=== PATIENT | male | born 1955 | race Caucasian/White ===

== ENCOUNTER 2016-08-24 17:40 | Emergency (ER) | payer BC ==
[2016-08-24] MEDS ORDERED: Sodium Chloride 0.9% 10 ML Syringe FLUSH PRN (18:28)
[2016-08-24] MEDS ORDERED: Aspirin 81 MG Tab.Chew PO ONE (18:28)
[2016-08-24] MEDS ORDERED: Nitroglycerin 0.4 MG Tab.SL SL PRN (18:34)
[2016-08-24 19:09] LABS: CHLORIDE,CL 105 mmol/L (101-111); SODIUM,NA 137 mmol/L (135-145)
--- NOTE | 2016-08-24 19:20 | EDM.PDOC ---
ED HPI GENERAL MEDICAL PROBLEM - General Chief Complaint: Neck Problem Stated Complaint: SHOULDER/NECK, [id number] Time Seen by Provider: 08/24/16 19:05 Source of Information: Reports: Patient, Family (SO) History Limitations: Reports: No Limitations - History of Present Illness INITIAL COMMENTS - FREE TEXT/NARRATIVE: Presents with C/O intermittent left sided neck pain over past week, sharp, stabbing brief episodes, not associated with positioning or activity. No relief with ibuprofen, Tonight episode severe enough to make him tear and radiated more to left upper chest below clavicle. Denies SOB fatigue, or sweating with episodes. Hx aortic aneurysm, noted to have measured 3.4cm last year and 4.2 this past month. Prior IN 2009 with one stent. Smoker 1/2 to 1 ppd. Duration: Intermittent Location: Reports: Neck Quality: Reports: Sharp, Stabbing Severity: Moderate Associated Symptoms: Reports: No Other Symptoms Left Lower Neck Pain Score (Numeric/FACES): 5 - Related Data Allergies Allergy/AdvReac Type Severity Reaction Status Date / Time carvedilol [From Coreg] Allergy Unknown DIZZY,LIGHT Verified 01/06/15 06:55 HEADED Home Meds: Home Meds Aspirin [Halfprin] 81 mg PO DAILY 01/05/15 [History] Isosorbide Mononitrate [Imdur] 60 mg PO DAILY 01/05/15 [History] Metoprolol Succinate [Toprol XL 100mg] 100 mg PO DAILY 01/05/15 [History] Multivitamin with Minerals [Multivitamins with Minerals] 1 tab PO DAILY [History] Psyllium Husk/Aspartame [Metamucil Sugar Free] 1 pack PO DAILY 01/05/15 [History ] atorvaSTATin [Lipitor] 80 mg PO DAILY 01/05/15 [History] Lisinopril 5 mg PO DAILY 08/24/16 [History] Past Medical History HEENT History: Reports: Impaired Vision Cardiovascular History: Reports: High Cholesterol, Hypertension Other Cardiovascular History: abdominal aortic aneurysm Other Gastrointestinal History: right inguinal hernia Other Genitourinary History: SAW A SKEIN WINDER ABOUT TWO WEEKS AGO AND HAD A ULTRASOUND DONE OF KIDNEYS, NO RESULTS BACK YET. Other Neuro History: BULGING DISK Other Endocrine/Metabolic History: Pre-diabetes Other Dermatologic History: dry skin and numerous moles noted. Social & Family History - Tobacco Use Smoking Status *Q: Current Every Day Smoker Years of Tobacco use: 40 Packs/Tins Daily: 0.5 Used Tobacco, but Quit: No Second Hand Smoke Exposure: Yes - Alcohol Use Days Per Week of Alcohol Use: 7 Number of Drinks Per Day: 2 Total Drinks Per Week: 14 - Recreational Drug Use Recreational Drug Use: No Drug Use in Last 12 Months: No ED ROS GENERAL - Review of Systems Review Of Systems: See Below HEENT: Reports: Glasses Respiratory: Denies: Shortness of Breath, Cough Cardiovascular: Reports: Chest Pain (left upper below clavicle [employer]). Denies: Dyspnea on Exertion, Edema, Lightheadedness, Palpitations GI/Abdominal: Reports: No Symptoms Musculoskeletal: Reports: Neck Pain Skin: Reports: No Symptoms Neurological: Reports: No Symptoms ED EXAM, GENERAL - Physical Exam Exam: See Below Exam Limited By: No Limitations General Appearance: Alert, No Apparent Distress (Relief of pain following administration of Aspirin) Eye Exam: Bilateral Eye: EOMI, PERRL Ears: Normal External Exam, Normal TMs Nose: Normal Inspection Throat/Mouth: Normal Inspection Head: Atraumatic, Normocephalic Neck: Normal Inspection, Non-Tender, Full Range of Motion Respiratory/Chest: No Respiratory Distress, Lungs Clear, Normal Breath Sounds Cardiovascular: Normal Peripheral Pulses, Regular Rate, Rhythm, No Edema, No Murmur GI/Abdominal: Normal Bowel Sounds, Soft Back Exam: Normal Inspection Extremities: Normal Inspection, Normal Range of Motion Neurological: Alert, Oriented, Normal Cognition, No Motor/Sensory Deficits Psychiatric: Normal Affect, Normal Mood Skin Exam: Warm, Dry, Intact, Normal Color Course - Vital Signs Last Recorded V/S: Last Vital Signs Temp 98.4 F 08/24/16 21:43 Pulse 61 08/24/16 23:04 Resp 16 08/24/16 23:04 BP 135/80 08/24/16 23:04 Pulse Ox 94 L 08/24/16 23:04 - Orders/Labs/Meds Orders: Active Orders 24 hr Category Date Time Status EKG 12 Lead [EKG Documentation Completion] [RC] STAT Care 08/24/16 18:27 Active Peripheral IV Care [RC] . DIRECTED Care 08/24/16 18:28 Active Peripheral IV Insertion Adult [OM.PC] Stat Oth 08/24/16 18:28 Ordered Labs: Laboratory Tests 08/24/16 08/24/16 08/24/16 Range/Units 18:42 18:42 18:42 WBC 10.0 (5.0-10.0) 10^3/uL RBC 4.05 L (4.6-6.2) 10^6/uL Hgb 12.4 L (14.0-18.0) g/dL Hct 38.2 L (40.0-54.0) % MCV 94.3 (80-100) fL MCH 30.6 (27.0-34.0) pg MCHC 32.5 L (33.0-35.0) g/dL Plt Count 287 (150-450) 10^3/uL Neut % (Auto) 59.6 (42.2-75.2) % Lymph % (Auto) 27.6 (20.5-50.1) % [place] % (Auto) 9.5 H (2-8) % Eos % (Auto) 3.0 (1.0-3.0) % Baso % (Auto) 0.3 (0.0-1.0) % PT (9.0-12.0) SEC INR (0.9-1.2) D-Dimer, Quantitative 742 H (0-400) ng/mL Sodium 137 (135-145) mmol/L Potassium 4.0 (3.6-5.0) mmol/L Chloride 105 (101-111) mmol/L Carbon Dioxide 20.0 L (21.0-31.0) mmol/L Anion Gap 16.0 BUN 13 (7-18) mg/dL Creatinine 1.0 (0.6-1.3) mg/dL Est Cr Clr Drug Dosing TNP Estimated GFR (MDRD) > 60 BUN/Creatinine Ratio 13.00 Glucose 102 (74-105) mg/dL Calcium 8.9 (8.4-10.2) mg/dl Total Bilirubin 0.5 (0.2-1.0) mg/dL AST 21 (10-42) IU/L ALT 20 (10-60) IU/L Alkaline Phosphatase 103 (42-121) IU/L Troponin I < 0.02 (0.00-0.02) ng/ml B-Natriuretic Peptide 90 (0-100) pg/ml Total Protein 7.3 (6.7-8.2) g/dl Albumin 3.5 (3.2-5.5) g/dl Globulin 3.8 Albumin/Globulin Ratio 0.92 Urine Color (YELLOW) Urine Appearance (CLEAR) Urine pH (5.0-9.0) Ur Specific [employer] (1.005-1.030) Urine Protein (NEGATIVE) Urine Glucose (UA) (NEGATIVE) Urine Ketones (NEGATIVE) Urine Occult Blood (NEGATIVE) Urine Nitrite (NEGATIVE) Urine Bilirubin (NEGATIVE) Urine Urobilinogen (0.2-1.0) mg/dL Ur Leukocyte Esterase (NEGATIVE) Urine RBC /HPF Urine WBC (0-5/HPF) /HPF Ur Epithelial Cells /HPF Urine Bacteria (0-FEW/HPF) /HPF Blood Type Gel Antibody Screen 08/24/16 08/24/16 08/24/16 Range/Units 18:42 18:42 19:16 WBC (5.0-10.0) 10^3/uL RBC (4.6-6.2) 10^6/uL Hgb (14.0-18.0) g/dL Hct (40.0-54.0) % MCV (80-100) fL MCH (27.0-34.0) pg MCHC (33.0-35.0) g/dL Plt Count (150-450) 10^3/uL Neut % (Auto) (42.2-75.2) % Lymph % (Auto) (20.5-50.1) % [place] % (Auto) (2-8) % Eos % (Auto) (1.0-3.0) % Baso % (Auto) (0.0-1.0) % PT 9.8 (9.0-12.0) SEC INR 1.0 (0.9-1.2) D-Dimer, Quantitative (0-400) ng/mL Sodium (135-145) mmol/L Potassium (3.6-5.0) mmol/L Chloride (101-111) mmol/L Carbon Dioxide (21.0-31.0) mmol/L Anion Gap BUN (7-18) mg/dL Creatinine (0.6-1.3) mg/dL Est Cr Clr Drug Dosing Estimated GFR (MDRD) BUN/Creatinine Ratio Glucose (74-105) mg/dL Calcium (8.4-10.2) mg/dl Total Bilirubin (0.2-1.0) mg/dL AST (10-42) IU/L ALT (10-60) IU/L Alkaline Phosphatase (42-121) IU/L Troponin I (0.00-0.02) ng/ml B-Natriuretic Peptide (0-100) pg/ml Total Protein (6.7-8.2) g/dl Albumin (3.2-5.5) g/dl Globulin Albumin/Globulin Ratio Urine Color Yellow (YELLOW) Urine Appearance Clear (CLEAR) Urine pH 5.5 (5.0-9.0) Ur Specific [employer] 1.010 (1.005-1.030) Urine Protein Negative (NEGATIVE) Urine Glucose (UA) Negative (NEGATIVE) Urine Ketones Negative (NEGATIVE) Urine Occult Blood Negative (NEGATIVE) Urine Nitrite Negative (NEGATIVE) Urine Bilirubin Negative (NEGATIVE) Urine Urobilinogen 0.2 (0.2-1.0) mg/dL Ur Leukocyte Esterase Negative (NEGATIVE) Urine RBC 0-5 /HPF Urine WBC 0-5 (0-5/HPF) /HPF Ur Epithelial Cells Occasional /HPF Urine Bacteria Occasional (0-FEW/HPF) /HPF Blood Type O POSITIVE Gel Antibody Screen Negative Meds: Medications Discontinued Medications Generic Name Dose Route Start Last Admin Trade Name Freq PRN Reason Stop Dose Admin Aspirin 324 mg 08/24/16 18:28 08/24/16 18:36 Aspirin PO 08/24/16 18:29 324 mg ONETIME ONE Administration Sodium Chloride 1,000 mls @ 500 mls/hr 08/24/16 20:18 08/24/16 20:48 Normal Saline IV 08/24/16 22:17 500 mls/hr .BOLUS ONE Administration Iopamidol 100 ml 08/24/16 20:53 08/24/16 21:20 Isovue-370 (76%) IVPUSH 08/24/16 20:54 100 ml ONETIME ONE Administration Lorazepam 1 mg 08/24/16 21:47 08/24/16 21:55 Ativan IVPUSH 08/24/16 21:48 1 mg ONETIME ONE Administration Metoprolol Tartrate 2.5 mg 08/24/16 21:46 08/24/16 21:53 Lopressor IVPUSH 08/24/16 21:47 2.5 mg ONETIME ONE Administration Nitroglycerin 0.4 mg 08/24/16 18:34 Nitrostat SL Q5M PRN Chest Pain Sodium Chloride 10 ml 08/24/16 18:28 08/24/16 18:46 Saline Flush FLUSH 10 ml ASDIRECTED PRN Administration Keep Vein Open - Radiology Interpretation Free Text/Narrative:: CT chest: dependent atelectasis left lung base. 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 Aneursym at aortic arch at takeoff of an abberant right subclavian artery measuring 7cm with appearance of intimal hemorrhage and high risk of rupture Abdomen: Inguinal hernia on left Infrarenal abdominal aortic aneurysm measuing 4.1 with growth of 2mm since 2014 CXR; Left paramediastinal soft tissue mass blunting with the aorta. Differential Dx includes aneurysm,adenopathy or other mediastinal mass. - Re-Assessments/Exams Free Text/Narrative Re-Assessment/Exam: 08/25/16 06:41 Patient remained pain free. Upon receipt of CT results, at 2118 contact made with [facility], Call back received from Cardio-thoracic surgeon Dr. Trinh. CT's reviewed. Recommendation for tranfer to [facility] due to significant reults and requiring multispecialty coordination. Dr. Oglesby kindly offered to initiate transfer process and contact cardiothoracic surgeon at [facility]. Call back received and patient accepted by Dr. Whitney at ED at [facility]. Patient transfer via [facility] fixed wing in stable, guarded condition. Patient and significant other appraised of CT findings and concern. Agreeable to transfer. Increase in BP following discussion of finding. Lopressor 2.5 and Ativan 1mg given with good response. Departure - Departure Time of Disposition: 23:55 Disposition: DC/Tfer to Acute Hospital 02 Condition: Critical Clinical Impression: Mass of left lung, Abdominal aortic aneurysm (AAA) 3.0 cm to 5.5 cm in diameter in male Aortic aneurysm Qualifiers: Aortic location: thoracic aorta Presence of rupture: without rupture Qualified Code(s): I71.2 - Thoracic aortic aneurysm, without rupture - Discharge Information Referrals: Leonidas Lopez MD [Primary Care Provider] - Forms: ED Department Discharge
[2016-08-24] MEDS ORDERED: Sodium Chloride 0.9% 1,000 ML IV ONE (20:18)
[2016-08-24] MEDS ORDERED: Iopamidol 755 Mg/ML 100 ML Bottle IVPUSH ONE (20:53)
[2016-08-24] MEDS ORDERED: Metoprolol Tartrate 5 MG/5 ML SDV IVPUSH ONE (21:46)
[2016-08-24] MEDS ORDERED: LORazepam 2 MG/ML Syringe IVPUSH ONE (21:47)
[2016-08-24 23:05] VITALS: BP 135/80
--- NOTE | 2016-08-28 13:07 | EKG ---
08/24/2016 - [facility] - A 12-lead EKG shows normal sinus rhythm with heart rate of 59. No significant ST elevation or ST depression noted on this 12-lead EKG. Nonspecific ST-T wave changes noted on lead V2 and V3. [facility] /[id number]
--- NOTE | 2016-08-28 13:10 | EKG ---
08/24/2016 - [facility] - Christos 12-lead EKG shows normal sinus rhythm with heart rate of 59. No significant ST elevation or ST depression noted. Incomplete left branch block noted. Nonspecific ST-T wave changes noted on lead V2, V3. [facility] /[id number]
== END 2016-08-24 23:36 ==
LOC: DL.ED 17:40
DX: I71.2 Thoracic aortic aneurysm, without rupture (principal); R91.8 Other nonspecific abnormal finding of lung field; I10 Essential (primary) hypertension; I25.2 Old myocardial infarction; E78.00 Pure hypercholesterolemia, unspecified; F17.210 Nicotine dependence, cigarettes, uncomplicated; Z79.82 Long term (current) use of aspirin; Z79.899 Other long term (current) drug therapy; Z88.8 Allergy status to other drugs, medicaments and biological substances; Z95.5 Presence of coronary angioplasty implant and graft
CPT/HCPCS: 36415; 71010; 71260; 74177; 80053; 81001; 83880; 84484; 85025; 85379; 85610; 86850; 86900; 86901; 93005; 96365; 96366; 96375; 99285; A9270; J2060; J7030; J7050; Q9967; J3490

== ENCOUNTER → 2021-10-19 | Day surgery (SDC) | payer OTHER ==
[~2021-10-19] MED LIST: Dextrose 5%-0.45% NaCl 1,000 ML IV SCH; Midazolam 1 MG/ML 2 ML SDV IV ONE; Midazolam 1 MG/ML 2 ML SDV ONE; Sodium Chloride 0.9% 10 ML Syringe FLUSH PRN; Sodium Chloride 0.9% 10 ML Syringe FLUSH SCH; fentaNYL 100 MCG/2 ML SDV IV ONE; fentaNYL 100 MCG/2 ML SDV ONE
[2021-10-19 15:09] VITALS: BP 150/76; PULSE 53
== END | disposition home or self-care (01) ==
LOC: DL.ENDO 07:01
PROVIDERS: ATTEND Internal Medicine Gastroenterology
DX: Z12.11 Encounter for screening for malignant neoplasm of colon (principal); D12.4 Benign neoplasm of descending colon; K57.30 Diverticulosis of large intestine without perforation or abscess without bleeding; I25.10 Atherosclerotic heart disease of native coronary artery without angina pectoris; H91.90 Unspecified hearing loss, unspecified ear; I71.4 Abdominal aortic aneurysm, without rupture; E78.5 Hyperlipidemia, unspecified; R73.9 Hyperglycemia, unspecified; I10 Essential (primary) hypertension; Z86.010 Personal history of colon polyps; Z98.890 Other specified postprocedural states; Z87.891 Personal history of nicotine dependence; Z88.8 Allergy status to other drugs, medicaments and biological substances
CPT/HCPCS: 45378; J2250; J3010; J7042

== ENCOUNTER 2021-12-10 12:00 | Emergency (ER) | payer OTHER ==
[2021-12-10] MEDS ORDERED: Amoxicillin/Clavulanate K 875-125 MG Tab PO ONE (12:01)
[2021-12-10 12:16] VITALS: BP 175/81; PULSE 66
[2021-12-10] MEDS ORDERED: Amoxicillin/Clavulanate K 875-125 MG Tab ONE (12:29)
== END 2021-12-10 12:33 | disposition home or self-care (01) ==
LOC: DL.ED 12:00
DX: S61.452A Open bite of left hand, initial encounter (principal); I25.10 Atherosclerotic heart disease of native coronary artery without angina pectoris; E78.00 Pure hypercholesterolemia, unspecified; I10 Essential (primary) hypertension; J44.9 Chronic obstructive pulmonary disease, unspecified; Z88.8 Allergy status to other drugs, medicaments and biological substances; Z79.899 Other long term (current) drug therapy; Z79.82 Long term (current) use of aspirin; W55.01XA Bitten by cat, initial encounter
CPT/HCPCS: 99283; 99284; A9270

== ENCOUNTER 2024-12-18 07:48 | Emergency (ER) | payer MEDICARE ==
[~2024-12-18 07:48] MED LIST changes: -Dextrose 5%-0.45% NaCl 1,000 ML IV SCH; -Midazolam 1 MG/ML 2 ML SDV IV ONE; -Midazolam 1 MG/ML 2 ML SDV ONE; -Sodium Chloride 0.9% 10 ML Syringe FLUSH SCH; -fentaNYL 100 MCG/2 ML SDV IV ONE; -fentaNYL 100 MCG/2 ML SDV ONE
[2024-12-18 07:56] LABS: PLATELET COUNT,PLT 563 10^3/uL (150-450); RED BLOOD CELL COUNT 2.49 10^6/uL (4.6-6.2); WHITE BLOOD CELL COUNT,WBC 19.8 10^3/uL (5.0-10.0)
[2024-12-18] MEDS: fentaNYL 100 MCG/2 ML SDV IVPUSH ONE (07:58)
[2024-12-18 08:00] LABS: BASOPHILS PERCENT AUTO 0.2 % (0.0-1.0); EOSINOPHILS PERCENT AUTO 0.8 % (1.0-3.0); LYMPHOCYTES PERCENT AUTO 17.5 % (20.5-50.1); MONOCYTES PERCENT AUTO 8.9 % (2-8); NEUTROPHILS PERCENT AUTO 72.6 % (42.2-75.2)
[2024-12-18 08:15] LABS: INR 1.0 (0.9-1.2)
[2024-12-18 08:16] LABS: ALANINE AMINOTRANSFERASE,ALT 23 U/L (16-63); ASPARTATE AMNIOTRANSFERASE,AST 21 U/L (15-37); BILIRUBIN TOTAL 0.7 mg/dL (0.2-1.0); BLOOD UREA NITROGEN,BUN 32 mg/dL (7-18); CARBON DIOXIDE,CO2 17 mmol/L (21-32); CHLORIDE,CL 100 mmol/L (98-107); CREATININE 1.69 mg/dL (0.70-1.30); GLUCOSE RANDOM 283 mg/dL (70-99); POTASSIUM,K 3.3 mmol/L (3.5-5.1); PROTEIN TOTAL,TP 5.6 g/dL (6.4-8.2); SODIUM,NA 136 mmol/L (136-145)
[2024-12-18 08:20] LABS: A/G RATIO 0.70; ESTIMATED GFR 43 mL/min (>=60)
[2024-12-18 08:43] LABS: LYMPHOCYTES PERCENT MAN 12 % (20-50); MONOCYTES PERCENT MAN 6 % (2-8); SEG NEUTROPHILS PERCENT MAN 82 % (42-75)
[2024-12-18 10:01] VITALS: BP 125/74; PULSE 115
[2024-12-18] MEDS: Lactated Ringers 1,000 ML IV ONE (10:04)
[2024-12-18 10:26] LABS: LACTIC ACID 4.5 mmol/L (0.4-2.0)
[2024-12-18] MEDS: Iopamidol 755 Mg/ML 100 ML Bottle IVPUSH ONE (14:51)
== END 2024-12-18 10:39 ==
LOC: DL.ED 07:48
DX: K92.2 Gastrointestinal hemorrhage, unspecified (principal); I10 Essential (primary) hypertension; I25.10 Atherosclerotic heart disease of native coronary artery without angina pectoris; E78.00 Pure hypercholesterolemia, unspecified; J44.9 Chronic obstructive pulmonary disease, unspecified; Z79.899 Other long term (current) drug therapy; Z79.1 Long term (current) use of non-steroidal anti-inflammatories (NSAID); Z79.890 Hormone replacement therapy; Z88.8 Allergy status to other drugs, medicaments and biological substances
CPT/HCPCS: 36415; 36430; 74175; 80053; 83605; 85025; 85610; 86850; 86900; 86901; 86920; 86922; 93005; 93010; 96361; 96372; 96374; 99285; J3010; J7120; P9016; Q9967; J2359